=== PATIENT | female | born 1945 | race Two or more races ===

== ENCOUNTER 2021-02-25 12:30 | Inpatient (IN) | payer OTHER ==
[~2021-02-25] VITALS: Ht 165.1 cm; Wt 83.0 kg
[2021-02-26] MEDS ORDERED: DAFLONEX-XL 11300 MG PO (07:50)
[2021-02-26] MEDS ORDERED: ZESTRIL10 M1 PO (07:51)
[2021-02-26] MEDS ORDERED: TRENTAL PO (07:51)
[2021-02-26] MEDS ORDERED: [UNRECOGNIZED DRUG - OTHER] PO (07:52)
[2021-02-26] MEDS ORDERED: VITAMIN D PO (07:52)
[2021-02-26] MEDS ORDERED: PENTOXIFYLLINE400 MG (14:04)
[2021-02-26] MEDS ORDERED: REFRESH OPTIVE10 ML (14:04)
[2021-02-26] MEDS ORDERED: ST. JOSEPH ASPI81 M2 (14:05)
[2021-02-26] MEDS ORDERED: AMLODIPINE BESYL5 MG (14:05)
[2021-02-26] MEDS ORDERED: ATORVASTATIN CA20 MG (14:05)
[2021-02-26] MEDS ORDERED: VITAMIN D3125 MC2 (14:05)
[2021-02-26] MEDS ORDERED: SELENIUM200 MC1 (14:07)
[2021-02-26] MEDS ORDERED: SELENIUM100 MCG (14:10)
== END 2021-02-28 15:50 | disposition home or self-care (01) | DRG 741 ==
LOC: SURH 02-26 07:00 → OB/GYN 02-26 07:39 → O/R 02-26 07:39 → SURH 02-26 12:30 → OB/GYN 02-26 16:43
PROVIDERS: ADMIT Specialist; ATTEND Specialist
PROC: 0UT2FZZ Resection of Bilateral Ovaries, Via Natural or Artificial Opening With Percutaneous Endoscopic Assistance (ICD-10-PCS; 2021-02-26)
PROC: 0UT7FZZ Resection of Bilateral Fallopian Tubes, Via Natural or Artificial Opening With Percutaneous Endoscopic Assistance (ICD-10-PCS; 2021-02-26)
PROC: 07BC4ZZ Excision of Pelvis Lymphatic, Percutaneous Endoscopic Approach (ICD-10-PCS; 2021-02-26)
PROC: 0DBU4ZZ Excision of Omentum, Percutaneous Endoscopic Approach (ICD-10-PCS; 2021-02-26)
PROC: 0UT9FZZ Resection of Uterus, Via Natural or Artificial Opening With Percutaneous Endoscopic Assistance (ICD-10-PCS; principal; 2021-02-26 07:00)
DX: C54.1 Malignant neoplasm of endometrium (principal); C57.01 Malignant neoplasm of right fallopian tube; I10 Essential (primary) hypertension